=== PATIENT | male | born 1965 | race Caucasian/White ===

== ENCOUNTER 2022-10-25 07:18 | Observation (INO) ==
--- NOTE | 2022-06-06 15:32 | PAT Medication Instructions ---
Medication Instructions Date of Service June 06, 2022 Home Medications fenofibrate micronized 200 mg capsule 200 mg PO HS levocetirizine 5 mg tablet (Xyzal) 5 mg PO PM metformin 1,000 mg tablet 1,000 mg PO BID multivitamin 1 tab PO QAM omega-3 fatty acids 1,000 mg PO BID omeprazole 20 mg capsule,delayed release 20 mg PO HS pioglitazone 45 mg tablet 45 mg PO QAM simvastatin 20 mg tablet 20 mg PO HS sitagliptin 50 mg tablet (Januvia) 50 mg PO QAM tamsulosin 0.4 mg capsule 0.4 mg PO HS STOP taking 2 weeks before surgery omega-3 fatty acids 1,000 mg PO BID DO NOT take the morning of surgery metformin 1,000 mg tablet 1,000 mg PO BID multivitamin 1 tab PO QAM pioglitazone 45 mg tablet 45 mg PO QAM sitagliptin 50 mg tablet (Januvia) 50 mg PO QAM Take evening before surgery fenofibrate micronized 200 mg capsule 200 mg PO HS levocetirizine 5 mg tablet (Xyzal) 5 mg PO PM metformin 1,000 mg tablet 1,000 mg PO BID omeprazole 20 mg capsule,delayed release 20 mg PO HS simvastatin 20 mg tablet 20 mg PO HS tamsulosin 0.4 mg capsule 0.4 mg PO HS Other Notes NOTHING TO EAT OR DRINK AFTER MIDNIGHT. If you have any questions please call us at [phone] or [phone] or [phone] or [phone]
--- NOTE | 2022-06-10 08:47 | Anesthesiology Consultation ---
Date of Service June 10, 2022 Assessment & Plan (1) Encounter for pre-operative examination: - COVID screening: Per assessment on 06/10: No known COVID-19 positive contacts or current COVID-19 related symptoms. Travel screen negative. Patient vaccinated. At surgeon discretion if preop Covid testing being done. - Check BSG AM DOS - Outpatient joint pathway: Per OR booking comments, plan for outpatient joint program. Patient seen at [facility] 06/10. Strong post-op home support per pt. Case reviewed with Dr. Wood (including morbid obesity- BMI 45, uncontrolled diabetes- A1C 8.4% and preop EKG). He does not feel that patient is appropriate candidate for outpatient joint pathway and will need to be rescheduled to inpatient pathway. Lisa at surgeon's office aware/will arrange (she states their office will contact patient to make aware of post-op plan). - Abnormal Preop EKG: Preop EKG notes ST/TWA, consider inferior ischemia. No comparison EKGs available. Will have optimization form sent to PCP. Awaiting PCP response to abnormal preop EKG as well as surgeon-ordered PCP preop evaluation (Dr. Jace Ahumada, scheduled 06/22). Chart Review Chart Review: Patient seen in Pre Admission Testing Teaching & Discussion Pre-Anesthesia Teaching/Discussion Notes: Instructed NPO after midnight before surgery,except medications with 15 cc of water. Medication instructions provided according to the [facility] guidelines. History Surgery Operation Date: 07/19/22 07:15 Proposed Procedures p Right Total Knee Arthroplasty - Christo Akhtar DO Height/Weight Height: 6 ft 1 in Weight: 155.7 kg Allergies Allergy/AdvReac Type Severity Reaction Status Date / Time No Known Allergies Allergy Verified 06/06/22 07:50 Medications Home Medications Medication Instructions Recorded Confirmed Last Taken fenofibrate micronized 200 mg 200 mg PO HS 06/06/22 06/06/22 Unknown capsule levocetirizine 5 mg tablet (Xyzal) 5 mg PO PM 06/06/22 06/06/22 Unknown metformin 1,000 mg tablet 1,000 mg PO BID 06/06/22 06/06/22 Unknown multivitamin 1 tab PO QAM 06/06/22 06/06/22 Unknown omega-3 fatty acids 1,000 mg PO BID 06/06/22 06/06/22 Unknown omeprazole 20 mg capsule,delayed 20 mg PO HS 06/06/22 06/06/22 Unknown release pioglitazone 45 mg tablet 45 mg PO QAM 06/06/22 06/06/22 Unknown simvastatin 20 mg tablet 20 mg PO HS 06/06/22 06/06/22 Unknown sitagliptin 50 mg tablet (Januvia) 50 mg PO QAM 06/06/22 06/06/22 Unknown tamsulosin 0.4 mg capsule 0.4 mg PO HS 06/06/22 06/06/22 Unknown Past Medical History Medical History Arthritis BPH (benign prostatic hyperplasia) Bulging lumbar disc Diabetes mellitus, type 2 GERD (gastroesophageal reflux disease) Controlled Heart valve disorder "Mild" leaking valve on remote cardiac cath 20 years ago ([place])- per pt, was advised at that time that no further f/u was needed. No murmur noted at PAT visit 06/10/22* History of blood clots Superficial Right knee (2008), r/t trauma/work injury Hyperlipidemia Morbid obesity Varicose vein of leg RLE Exercise / Class Metabolic Activity II 4-5 Yardwork/Stairs/Walk up hill (one FS (no CP, no SOB)) Past Family History Family History Mother Family history of diabetes mellitus Other No family history of adverse response to anesthesia Past Surgical History Surgical History H/O knee surgery RT X 4 H/O shoulder surgery RT RECONSTRUCTION H/O vascular surgery RT LEG VEIN ABLATION History of cardiac cath 20 YEARS AGO AT [facility] History of colonoscopy History of esophagogastroduodenoscopy (EGD) History of tonsillectomy History of tooth extraction Nausea and vomiting after administration of anesthetic agent Past Anesthesia History No Hx of Anesthesia Complications (except PONV) and No Family Hx of Anesthesia Complications History of PONV No Hx of Motion Sickness and History of PONV (with remote surgery) Social History Smoking Status: Never smoker tobacco type: smokeless tobacco Do You Dip or Chew Tobacco: No (Quit 5 years ago) Hx Alcohol Use: Yes Alcohol type: beer alcohol intake frequency: 3 or more drinks per day (2-3 beers/night, no morning ETOH use) Hx Substance Use: No substance use type: does not use Review of Systems Patient denies chest pain, shortness of breath, dyspnea on exertion, fever, chills, cough, wheezing, palpitations. Physical Exam Vital Signs VITALS BP 128/81 P 71 TEMP 98.1 SP02 97%RA RESP 16 PHYSICAL Full cervical extension range of motion. Full TMJ range of motion. TMD 3 finger breaths Mallampati Score 1 Dentition: missing side, + several crowns/bridges Lungs: clear throughout to auscultation Cardiac: regular rate and rhythm, no murmurs noted Spine: normal Carotid arteries: negative bruit Extremities: no edema Lab Results Anesthesia Preop Results Results Anesthesia Widget: WBC 6.03 K/ul (4.8-10.8) 06/10/22 Hgb 13.6 g/dl (14.0-18.0) L 06/10/22 Hct 41.4 % (40.1-51.0) 06/10/22 Plt 253 K/uL (130-400) 06/10/22 Na 136 mmol/L (136-145) 06/10/22 K 4.9 mmol/L (3.5-5.1) 06/10/22 Cl 103 mmol/L (98-107) 06/10/22 CO2 28 mmol/L (21-32) 06/10/22 BUN 18 mg/dl (6-23) 06/10/22 Creat 1.06 mg/dl (0.6-1.4) 06/10/22 Glucose Level 236 mg/dl (70-99(Fasting)) H 06/10/22 PT 11.1 Seconds (9.0-12.0) 06/10/22 PTT 27.6 Seconds (21.0-31.0) 06/10/22 INR 1.0 (0.9-1.1) 06/10/22 HA1c 8.4 % (4.5-5.6) H 06/10/22 Urine Color Yellow 06/10/22 Urine Appearance Clear (Clear) 06/10/22 Urine pH 6.0 (4.5-7.5) 06/10/22 Urine Specific [place] 1.016 (1.000-1.030) 06/10/22 Urine Protein Negative (Negative) 06/10/22 Urine Glucose (UA) 3+ (Negative) H 06/10/22 Urine Ketones Negative (Negative) 06/10/22 Urine Blood Negative (Negative) 06/10/22 Urine Nitrite Negative (Negative) 06/10/22 Urine Bilirubin Negative (Negative) 06/10/22 Urine Urobilinogen Negative (Negative) 06/10/22 Urine Leukocyte Esterase Negative (Negative) 06/10/22 Blood Type O Negative 06/10/22 Antibody Screen NEGATIVE 06/10/22 Testing Laboratory Results *Surgeon's office made aware of elevated hgba1c* Electrocardiogram Date: 06/10/[address]/TWA, consider inferior ischemia. Chest X-Ray Date: 06/10/22 FINDINGS: There are low lung volumes. Lungs are clear. No pleural effusions. No pneumothorax. The heart is normal in size. Mild anterior wedging within a few of the thoracic spine vertebral bodies. These are technically age indeterminate but likely chronic. IMPRESSION: No acute process. COVID-19 Risk Screen Screening Information COVID-19 Screen Date: 06/10/22 Exposure 21 Days Family/Household +COVID Last 21 Days: No Exposure 10 Days Any COVID Exposure Last 10 Days: No Symptoms Last 10 Days Experienced COVID Sx Last 10 Days: No + COVID 0-90 Days COVID + in Last 0-90 Days: No
--- NOTE | 2022-06-24 16:07 | History & Physical Report ---
Date of Service June 24, 2022 date of surgery: 07/19/22 Procedure: Right Total Knee Arthroplasty Surgeon: Christo Akhtar Assessment & Plan (1) Arthritis of right knee: Plan: Patient has failed conservative measures like to receive the right total knee replacement. Plan to be on discharge with home health physical therapy, placed on Xarelto x1 month postop for DVT prophylaxis. Patient otherwise has no other questions or concerns The risks and benefits have been discussed including, but not limited to, risk of infection, nerve injury, stiffness, loss of motion, failure to improve, etc. Reasonable outcomes and options of treatment were discussed. An explanation of appropriate alternatives to the procedure that may be advantageous were discussed and their risks and benefits, as well as the risks and benefits of not proceeding with treatment. I offered to answer any additional inquiries concerning the treatment involved. All the patient's questions were answered. The patient is agreeable, understanding of the treatment plan and alternatives, and wishes to proceed with the treatment plan. History of Present Illness Chief Complaint: Right knee pain Primary Care Provider: RENETTA PCP Rmay is a 56-year-old male presents for preop evaluation prior to right total knee replacement. He has been having pain in this knee for many years now which is gradually worsened, is now affecting his daily activities including walking standing using stairs. Rates current pain as a 7 out of 10. He is tri ed and failed previous cortisone injection as well as viscosupplementation. He is tried oral anti-inflammatories and Tylenol without relief. Like to proceed with right total knee replacement Allergies Allergy/AdvReac Type Severity Reaction Status Date / Time No Known Allergies Allergy Verified 06/06/22 07:50 Home Medications Medication Instructions Recorded Confirmed Type fenofibrate micronized 200 mg 200 mg PO HS 06/06/22 06/06/22 History capsule levocetirizine 5 mg tablet (Xyzal) 5 mg PO PM 06/06/22 06/06/22 History metformin 1,000 mg tablet 1,000 mg PO BID 06/06/22 06/06/22 History multivitamin 1 tab PO QAM 06/06/22 06/06/22 History omega-3 fatty acids 1,000 mg PO BID 06/06/22 06/06/22 History omeprazole 20 mg capsule,delayed 20 mg PO HS 06/06/22 06/06/22 History release pioglitazone 45 mg tablet 45 mg PO QAM 06/06/22 06/06/22 History simvastatin 20 mg tablet 20 mg PO HS 06/06/22 06/06/22 History sitagliptin 50 mg tablet (Januvia) 50 mg PO QAM 06/06/22 06/06/22 History tamsulosin 0.4 mg capsule 0.4 mg PO HS 06/06/22 06/06/22 History Past Med/Surg History Medical History Arthritis BPH (benign prostatic hyperplasia) Bulging lumbar disc Diabetes mellitus, type 2 GERD (gastroesophageal reflux disease) Controlled Heart valve disorder "Mild" leaking valve on remote cardiac cath 20 years ago ([place])- per pt, was advised at that time that no further f/u was needed. No murmur noted at PAT visit 06/10/22* History of blood clots Superficial Right knee (2008), r/t trauma/work injury Hyperlipidemia Morbid obesity Varicose vein of leg RLE Surgical History H/O knee surgery RT X 4 H/O shoulder surgery RT RECONSTRUCTION H/O vascular surgery RT LEG VEIN ABLATION History of cardiac cath [address] [facility] History of colonoscopy History of esophagogastroduodenoscopy (EGD) History of tonsillectomy History of tooth extraction Nausea and vomiting after administration of anesthetic agent Family History Mother Family history of diabetes mellitus Other No family history of adverse response to anesthesia Social History Smoking Status: Never smoker Second Hand Exposure: No; Hx Alcohol Use: Yes Alcohol type: beer Hx Substance Use: No Preferred Language: Armenian Customer Account Technician Required: No Beliefs That Will Affect Care: None Current Living Situation: Alone Feels Safe at Home: Yes Assistive Devices: Glasses Review of Systems Review of Systems: All systems reviewed & are unremarkable except as noted in HPI & below Constitutional: no fever, no chills and no sweats Respiratory: no cough and no dyspnea Cardiovascular: no chest pain, no dyspnea and no orthopnea Gastrointestinal: no abdominal pain, no nausea and no vomiting Musculoskeletal: as per Subjective / HPI Physical Exam Physical Exam: HT: 6ft 1in WT: 155.7kg Constitutional: WD/WN, vitals as above no acute distress Respiratory: normal respiratory effort, lungs clear to auscultation no respiratory distress, no labored breathing and does not use accessory muscles Cardiovascular: RRR, no murmur, no edema Gastrointestinal (Abdomen): normal bowel sounds, soft, nontender, no he patosplenomegaly Musculoskeletal: Knee: + effusion (+1 effusion), + surgical incision (well healed portals), + limited ROM of knee (ROM 0/3/110), + knee ROM with crepitation, + joint line tenderness (medial joint line) and + Agatha's sign positive; no deformity, no skin erythema, no ecchymosis, no valgus laxity, no varus laxity, anterior drawer test negative, Blanca's sign negative and pivot shift test negative exam above in relation to patients right knee: Results & Data Results & Data ([facility]) Diagnostic Findings Right Knee X-ray: Right knee series showing advanced degenerative changes to the right knee, narrowing of the medial compartment and patello-femoral joint with patellar spurring noted, findings showing joint space narrowing of the medial compartment and patello-femoral joint, osteophyte formation and subchondral sclerosis noted. overall varus alignment. no acute bony pathology noted.
--- NOTE | 2022-09-26 09:42 | History & Physical Report ---
Date of Service September 26, 2022 date of surgery: 10/25/22 Procedure: Right Total Knee Arthroplasty Surgeon: Christo Akhtar Assessment & Plan (1) Arthritis of right knee: Plan: Patient has failed conservative measures like to receive the right total knee replacement. Plan to be on discharge with home health physical therapy, placed on Xarelto x1 month postop for DVT prophylaxis. Patient otherwise has no other questions or concerns The risks and benefits have been discussed including, but not limited to, risk of infection, nerve injury, stiffness, loss of motion, failure to improve, etc. Reasonable outcomes and options of treatment were discussed. An explanation of appropriate alternatives to the procedure that may be advantageous were discussed and their risks and benefits, as well as the risks and benefits of not proceeding with treatment. I offered to answer any additional inquiries concerning the treatment involved. All the patient's questions were answered. The patient is agreeable, understanding of the treatment plan and alternatives, and wishes to proceed with the treatment plan. History of Present Illness Chief Complaint: right knee pain Primary Care Provider: DO Ramy Aguiar is a 56-year-old male presents for preop evaluation prior to right total knee replacement. He has been having pain in this knee for many years now which is gradually worsened, is now affecting his daily activities including walking standing using stairs. Rates current pain as a 7 out of 10. He is tried and failed previous cortisone injection as well as viscosupplementation. He is tried oral anti-inflammatories and Tylenol without relief. Like to proceed with right total knee replacement Allergies Allergy/AdvReac Type Severity Reaction Status Date / Time No Known Allergies Allergy Verified 06/06/22 07:50 Home Medications Medication Instructions Recorded Confirmed Type fenofibrate micronized 200 mg 200 mg PO HS 06/06/22 06/06/22 History capsule levocetirizine 5 mg tablet (Xyzal) 5 mg PO PM 06/06/22 06/06/22 History metformin 1,000 mg tablet 1,000 mg PO BID 06/06/22 06/06/22 History multivitamin 1 tab PO QAM 06/06/22 06/06/22 History omega-3 fatty acids 1,000 mg PO BID 06/06/22 06/06/22 History omeprazole 20 mg capsule,delayed 20 mg PO HS 06/06/22 06/06/22 History release pioglitazone 45 mg tablet 45 mg PO QAM 06/06/22 06/06/22 History simvastatin 20 mg tablet 20 mg PO HS 06/06/22 06/06/22 History sitagliptin phosphate 50 mg tablet 50 mg PO QAM 06/06/22 06/06/22 History (Januvia) tamsulosin 0.4 mg capsule 0.4 mg PO HS 06/06/22 06/06/22 History Past Med/Surg History Medical History Arthritis BPH (benign prostatic hyperplasia) Bulging lumbar disc Diabetes mellitus, type 2 GERD (gastroesophageal reflux disease) Controlled Heart valve disorder "Mild" leaking valve on remote cardiac cath 20 years ago ([place])- per pt, was advised at that time that no further f/u was needed. No murmur noted at PAT visit 06/10/22* History of blood clots Superficial Right knee (2008), r/t trauma/work injury Hyperlipidemia Morbid obesity Varicose vein of leg RLE Surgical History H/O knee surgery RT X 4 H/O shoulder surgery RT RECONSTRUCTION H/O vascular surgery RT LEG VEIN ABLATION History of cardiac cath 20 YEARS AGO AT [facility] History of colonoscopy History of esophagogastroduodenoscopy (EGD) History of tonsillectomy History of tooth extraction Nausea and vomiting after administration of anesthetic agent Family History Mother Family history of diabetes mellitus Other No family history of adverse response to anesthesia Social History Smoking Status: Never smoker Second Hand Exposure: No; Hx Alcohol Use: Yes Alcohol type: beer Hx Substance Use: No Preferred Language: Estonian Guide Foreign Tour Required: No Beliefs That Will Affect Care: None Current Living Situation: Alone Feels Safe at Home: Yes Assistive Devices: Glasses Review of Systems Constitutional: no fever, no chills and no sweats Respiratory: no cough and no dyspnea Cardiovascular: no chest pain, no dyspnea and no orthopnea Gastrointestinal: no abdominal pain, no nausea and no vomiting Musculoskeletal: as per Subjective / HPI Physical Exam Physical Exam: HT: 6ft 1in WT: 155.7kg Constitutional: WD/WN, vitals as above no acute distress Respiratory: normal respiratory effort, lungs clear to auscultation no respiratory distress, no labored breathing and does not use accessory muscles Cardiovascular: RRR, no murmur, no edema Gastrointestinal (Abdomen): normal bowel sounds, soft, nontender, no hepatosplenomegaly Musculoskeletal: Knee: + knee abnormal to inspection (Right Knee:), + effusion (+1 effusion), + surgical incision (well healed portals), + limited ROM of knee (ROM 0/3/110), + knee ROM with crepitation, + joint line tenderness (medial joint line) and + Agatha's sign positive; no deformity, no skin erythema, no ecchymosis, no valgus laxity, no varus laxity, anterior drawer test negative, Blanca's sign negative and pivot shift test negative Results & Data Results & Data ([facility]) Diagnostic Findings Right Knee X-ray: Right knee series showing advanced degenerative changes to the right knee, narrowing of the medial compartment and patello-femoral joint with patellar spurring noted, findings showing joint space narrowing of the medial compartment and patello-femoral joint, osteophyte formation and subchondral sclerosis noted. overall varus alignment. no acute bony pathology noted.
--- NOTE | 2022-10-20 08:42 | Anesthesiology Consultation ---
Date of Service October 20, 2022 Assessment & Plan (1) Encounter for pre-operative examination: - COVID screening: Per assessment on 10/19: No known COVID-19 positive contacts or current COVID-19 related symptoms. Travel screen negative. Patient was Covid po sitive (home test, late 07/2022). Symptoms at time: body aches, headache > resolved. No formal Covid testing. Surgeon's office does not wish for patient to have Covid testing done prior to DOS. Per PAT RN, surgeon's office aware that if DOS Araya testing comes back positive, patient would need to be postponed as there has been no formal Covid testing supporting Covid positive result within protocol timeframe. Pt scheduled for admission post-operatively. Plan for COVID Araya AM DOS due to possibility that patient may have a roommate. Araya order placed. - Check BSG AM DOS - Cardiology office visit (09/30/22): "Had echo today.. His knee surgery was pushed back and is know [sic] scheduled for oct 25.. Abnormal EKG with possible inferior ischemia reported on 05/2022 EKG from [facility]-- pt has acceptable exercise capacity and no anginal complaints. CT agatson score is 0." Echo performed 09/30/22 was unremarkable. - Cardiology note (09/30/22): "cleared from a cardiac standpoint for his proposed knee surgery" - Outpatient joint assessment: Pt currently scheduled for inpatient pathway. If surgeon requests review for outpatient joint pathway, patient is not recommended candidate for outpatient joint program from anesthesia standpoint. - Preop testing: No recent labs. Will order CBC, BMP, coags, T&S for AM DOS. Chart Review Chart Review: Acceptable Risk for Surgery (pending preop labs AM DOS) and Patie nt NOT seen in Pre Admission Testing History Surgery Operation Date: 07/19/22 07:15 Proposed Procedures p Right Total Knee Arthroplasty - Christo Akhtar DO Operation Date: 10/25/22 07:15 Proposed Procedures p Right Total Knee Arthroplasty - Christo Akhtar DO Height/Weight Height: 6 ft 1 in Weight: 145.15 kg Allergies Allergy/AdvReac Type Severity Reaction Status Date / Time No Known Allergies Allergy Verified 10/19/22 12:29 Medications Home Medications Medication Instructions Recorded Confirmed Last Taken levocetirizine 5 mg tablet (Xyzal) 5 mg PO PM 06/06/22 06/06/22 Unknown metformin 1,000 mg tablet 1,000 mg PO BID 06/06/22 06/06/22 Unknown multivitamin 1 tab PO QAM 06/06/22 06/06/22 Unknown omega-3 fatty acids 1,000 mg PO BID 06/06/22 06/06/22 Unknown omeprazole 20 mg capsule,delayed 20 mg PO HS 06/06/22 06/06/22 Unknown release pioglitazone 45 mg tablet 45 mg PO QAM 06/06/22 06/06/22 Unknown sitagliptin phosphate 50 mg tablet 50 mg PO QAM 06/06/22 06/06/22 Unknown (Januvia) tamsulosin 0.4 mg capsule 0.4 mg PO HS 06/06/22 06/06/22 Unknown atorvastatin 40 mg tablet (Lipitor) 40 mg PO PM 10/19/22 10/19/22 Unknown Past Medical History Medical History Arthritis BPH (benign prostatic hyperplasia) Bulging lumbar disc COVID-19 Late 07/2022 (home test)- symptoms resolved Diabetes mellitus, type 2 GERD (gastroesophageal reflux disease) Controlled Heart valve disorder "Mild" leaking valve on remote cardiac cath 20 years ago ([place])- per pt, was advised at that time that no further f/u was needed. No murmur noted at PAT visit 06/10/22. No significant valvular disease noted on 09/30/22 echo* History of blood clots Superficial Right knee (2008), r/t trauma/work injury Hyperlipidemia Morbid obesity Varicose vein of leg RLE Past Family History Family History Mother Family history of diabetes mellitus Other No family history of adverse response to anesthesia Past Surgical History Surgical History H/O knee surgery RT X 4 H/O shoulder surgery RT RECONSTRUCTION H/O vascular surgery RT LEG VEIN ABLATION History of cardiac cath [address] [facility] History of colonoscopy History of esophagogastroduodenoscopy (EGD) History of tonsillectomy History of tooth extraction Nausea and vomiting after administration of anesthetic agent Social History Smoking Status: Never smoker tobacco type: smokeless tobacco Do You Dip or Chew Tobacco: No (Quit 5 years ago) Hx Alcohol Use: Yes Alcohol type: beer alcohol intake frequency: 3 or more drinks per day Alcohol Intake Frequency Comment: 2-5 BEERS DAILY Hx Substance Use: No substance use type: does not use Testing Electrocardiogram Date: 06/10/[address]/TWA, consider inferior ischemia. Patient referred to cardiology- preop evaluation/clearance/echo done 09/30/22* Chest X-Ray Date: 06/10/22 FINDINGS: There are low lung volumes. Lungs are clear. No pleural effusions. No pneumothorax. The heart is normal in size. Mild anterior wedging within a few of the thoracic spine vertebral bodies. These are technically age indeterminate but likely chronic. IMPRESSION: No acute process. Echocardiogram Date: 09/30/22 EF 50-55%. Mild LVH. Grade I DD.
[~2022-10-25 07:18] MED LIST: ACETAMINOPHEN 500 MG TAB PO SCH; BUPIVACAINE 0.5 % 5 MG/1 ML PF 10ML VIAL ONE; CeleBREX 200 MG CAP PO SCH; FAMOTIDINE 20 MG TAB PO SCH; GABAPENTIN 600 MG DOSE PO SCH; LR 500ML BOLUS, THEN 15ML/HR IV SCH; METOCLOPRAMIDE HCL 10 MG TABLET PO SCH; ROPIVACAINE 0.5% 5 MG/ML 30 ML VIAL ONE; ROPIVACAINE 0.5% HCL/PF 150 MG, BUPIVACAINE 0.75% MPF 20 ML, EPINEPHrine 30MG/30ML (OR ... INSTIL SCH; TRANEXAMIC ACID 1,000 MG **IV Intra-op IV SCH; TRANEXAMIC ACID 1,000 MG **IV Pre-op IV SCH; dexAMETHasone 4 MG TAB PO SCH
[2022-10-25 08:11] LABS: Basophils # (auto) 0.03 K/uL (0-0.2); Basophils % (auto) 0.5 %; Eosinophils # (auto) 0.12 K/uL (0-0.50); Eosinophils % (auto) 2.1 %; Hematocrit (blood only) 43.8 % (42.0-52.0); Hemoglobin 14.6 g/dl (14.0-18.0); Immature Granulocytes # (auto) 0.02 K/uL (0.01-0.20); Immature Granulocytes % (auto) 0.3 %; Lymphocytes # (auto) 1.87 K/uL (1.2-3.4); Lymphocytes % (auto) 32.5 %; Mean Corpuscular Hemoglobin 29.5 pg (25.0-34.0); Mean Corpuscular Hgb Conc 33.3 g/dL (32.0-36.0); Mean Corpuscular Volume 88.5 fL (80.0-100.0); Mean Platelet Volume 8.7 fL (9.4-12.4); Monocytes # (auto) 0.55 K/uL (0.11-0.59); Monocytes % (auto) 9.6 %; Neutrophils # (auto) 3.16 K/uL (1.40-6.50); Platelet Count 213 K/uL (130-400); RDW Coefficient of Variation 13.8 % (11.5-14.5); RDW Standard Deviation 44.9 fL (36.4-46.3); Red Blood Count 4.95 M/uL (4.70-6.10); White Blood Count 5.75 K/ul (4.8-10.8)
[2022-10-25 08:24] LABS: BUN Creatinine Ratio 18.7 (10-20); Calcium 10.2 mg/dl (8.5-10.1); Creatinine Clr Calc Pharmacy 138.1 ml/min; Est GFR (African American) 108.8 ml/min; Est GFR (Non-African American) 93.9 ml/min; Potassium 4.6 mmol/L (3.5-5.1)
[2022-10-25 08:42] LABS: INR 1.1 (0.9-1.1); Partial Thromboplastin Time 28.2 Seconds (21.0-31.0); Prothrombin Time 11.5 Seconds (9.0-12.0)
[2022-10-25] MEDS ORDERED: fentaNYL citrate 100 MCG/2 ML VIAL ONE (08:52)
[2022-10-25] MEDS ORDERED: PROPOFOL IV EMULSION 10 MG/ML 20 ML VIAL IV ONE ×4 (08:52→11:55)
[2022-10-25] MEDS ORDERED: MIDAZOLAM HCL 1 MG/ML 2ML VIAL ONE ×2 (08:52→10:31)
--- NOTE | 2022-10-25 09:10 | History & Physical Bridge Note ---
Date of Service October 25, 2022 History & Physical Bridge Note I have examined the patient, reviewed the History & Physical and in the interval since the performance of the History & Physical I have noted the following changes of clinical significance: no changes noted
[2022-10-25] MEDS ORDERED: ePHEDrine sulfate 50 MG/ML AMP IV PRN (09:26)
[2022-10-25] MEDS ORDERED: fentaNYL citrate 100 MCG/2 ML VIAL IV PRN (09:26)
[2022-10-25] MEDS ORDERED: ONDANSETRON INJ 2 MG/ML 2 ML VIAL IV PRN ×2 (09:26→13:54)
[2022-10-25] MEDS ORDERED: ATROPINE SULFATE 0.1 MG/ML 10ML SYR IV PRN (09:26)
[2022-10-25] MEDS ORDERED: ORTHO JOINT ANESTHETIC ONE (09:40)
--- NOTE | 2022-10-25 11:41 | Operative Report ---
Post Operative Report Pre & Post Diagnosis Operation Date: 07/19/22 07:15 <No data on this case meets the specified criteria> Operation Date: 10/25/22 09:35 Pre-Op Diagnosis: Osteoarthritis Right Knee Post-Op Diagnosis: Osteoarthritis Right Knee I identified the patient and participated in the time-out.: Yes Procedure Operation Date: 07/19/22 07:15 <No data on this case meets the specified criteria> Operation Date: 10/25/22 09:35 Actual Procedures p Right Total Knee Arthroplasty(Right) utilizing [employer] journey 2 patient matched total knee arthroplasty size femur 7 right tibia 7 Poly 12 patella 35 gaetano Akhtar DO Surgeon Christo Akhtar DO Parking Inspector Jackson AKERS Estimated Blood Loss 10 Findings Consistent with Post-Op Diagnosis Patient has a severe end-stage tricompartmental degenerative joint disease of the right knee no response to conservative management eburnated [id number] marginal osteophyte subchondral sclerosis subchondral cystic changes large effusion Specimens Bone and cartilage Drains Medium bore Hemovac Anesthesia Type MAC Spinal Regional Complications none Disposition Accompanied Patient To Recovery: No Disposition: Recovery Room Indications Patient presents with severe end-stage DJD after failed attempts at conservative management clinic physical therapy anti-inflammatories relative rest activity modification corticosteroid injection viscosupplementation above intraoperative findings were noted Description of Procedure After proper prepping and draping of the Right lower extremity anterior midline incision was made over the region of the extensor extensor mechanism after m eticulous hemostasis was obtained and maintained in subcutaneous tissues a medial parapatellar incision was made The patella was subluxed lateralward the medial lateral gutter were cleaned from any hypertrophic synovitis and scar tissue of the distal femoral block was placed and the distal femoral osteotomy cut was made subsequently the chamfers anterior and posterior osteotomy cuts were made utilizing the 4-in-1 block the tibia was subsequently subluxed anteriorward medial and ateral meniscal remnants were excised in their entirety remnants of the anterior and posterior cruciate ligaments were excised in their entirety excellent exposure of the proximal tibia was obtained the tibial osteotomy guide was placed on the proximal tibial osteotomy cut was made once again the knee was irrigated with copious amounts of sterile saline solution the patella was subsequently everted lateralward thickened scar tissue around the patella was removed the patella was subsequently cut utilizing a freehand technique and was drilled prepared for final preparation and placement of patella socially flexion-extension gaps were checked and the equal and symmetric trials were placed to the appropriate femoral and tibial trials with poly-spacer being placed for equal flexion and extension gaps and full range of motion including extension to 0 and flexion to 140 the trial components after having been taken to recovery range of motion was subsequently removed meticulous hemostasis was obtained and maintained subsequently a knee block injection of joint cocktail including ropivacaine 0.5% 150 mg. Bupivacaine 0.5% epinephrine 1-200,030 mL's toradol 30 mg dexamethasone 4 mg ketamine 10 mg clonidine 100 micrograms normal saline solution 30 mg was infiltrated into the soft tissues of the posterior knee medial lateral gutters and periosteal synovium special attention was paid to protect neurovascular structures at all times subsequently trial components having been removed the knee was irrigated with sterile saline solution. debris was removed the proximal tibia was subsequently prepared and was made ready for the placement of the tibial component tibial component was also cemented and tamped into position the femoral component was subsequently placed and cemented in the position the patellar component was subsequently cemented in position because hemostasis once again obtained and maintained wound having been thoroughly irrigated with debridement and debridement lavage was performed as well as a medial parapatellar incision closed with #1 Vicryl in interrupted fashion subcutaneous was closed with #2 Vicryl skin was closed with skin clips. PA-C was necessary for prepping and drapping as well as wound closure of deep fascia Sub cutaneous tissue and skin and was necessary for the case. A sterile compressive dressing was placed patient was taken to recovery in stable condition of report dictated by Hermilo I attest to the content of the Intraoperative Record and any orders documented therein. Any exceptions are noted below.Due to the complex nature of the procedure, the entire surgery was performed with the operational assistance of Jackson AKERS. The tutoring assistant, under direct supervision, was involved in the actual performance of all aspects of the surgical procedure including hemostasis, tissue retraction and incision, instrument management, patient p ositioning, and wound closure. I attest to the content of the Intraoperative Record and any orders documented therein. Any exceptions are noted below.
--- NOTE | 2022-10-25 13:12 | XRay Report ---
TWO VIEWS RIGHT KNEE CLINICAL HISTORY: Postoperative examination. FINDINGS: AP and crosstable lateral portable views of the right knee are obtained. A right knee arthr oplasty is in near anatomic alignment. There has been undersurface remodeling of the patella. No acut e fracture is seen. There are expected postoperative changes around the knee including a surgical angelica in, soft tissue edema, and subcutaneous gas. IMPRESSION: Expected postoperative changes status post right knee arthroplasty. No acute fracture is seen. ACT 112: Negative or not required by law. Electronically signed by: Atul Oliveira M.D. 10/25/2022 1:10 PM
--- NOTE | 2022-10-25 13:25 | Anesthesiology Progress Note ---
Date of Service October 25, 2022 Anesthesia Post Procedure Vital Signs Vital Signs: Temp Pulse Resp BP Pulse Ox O2 Del Method O2 Flow Rate 10/25/22 13:20 97.3 F L 65 14 139/68 93 Room Air 10/25/22 13:10 65 14 122/65 93 Room Air 10/25/22 13:00 71 20 135/67 97 Room Air 10/25/22 12:50 66 16 131/68 96 Room Air 10/25/22 12:40 69 13 128/62 100 Oxymask 3 10/25/22 12:30 73 12 107/67 99 Oxymask 6 10/25/22 12:25 97.7 F 74 12 117/63 98 Oxymask 6 10/25/22 08:08 97.9 F 75 20 155/88 H 98 Room Air Pain Intensity Right Knee: Pain Intensity: 0 Transfer of Care Handoff Completed per policy Notes Mental Status: alert / awake / arousable and participated in evaluation Patient Amnestic to Procedure: Yes Nausea / Vomiting: adequately controlled Pain: adequately controlled Airway Patency, RR, SpO2: stable & adequate BP & HR: stable & adequate Hydration State: stable & adequate Neuraxial Anesthesia: was administered and sensory block is resolving Anesthetic Complications: no major complications apparent and Pt Satisfied with anesthetic care
[2022-10-25] MEDS ORDERED: HYDROmorphone INJ 0.5 MG/0.5 ML SYR IV PRN (13:54)
[2022-10-25] MEDS ORDERED: oxyCODONE HCL IR 5 MG TAB (IMMEDIATE RELEASE) PO PRN (13:54)
[2022-10-25] MEDS ORDERED: diphenhydrAMINE 50 MG/ML VIAL IV PRN (13:54)
[2022-10-25] MEDS ORDERED: PHARMACY GLYCEMIC MGMT CONSULT PRN (13:54)
[2022-10-25] MEDS ORDERED: MAGNESIUM HYDROXIDE SUSP 30 ML UDC PO PRN (13:54)
[2022-10-25] MEDS ORDERED: bisacodyL 10 MG SUPP PR PRN (13:54)
[2022-10-25] MEDS ORDERED: NALOXONE HCL 0.4 MG/1 ML VIAL/CARP IV PRN (13:54)
--- NOTE | 2022-10-25 14:13 | Pharmacy Report ---
Pharmacy Glycemic Short Note 2 - Date of Service October 25, 2022 - Glycemic Short BSG Results (Last 24 hours): 10/25/22 10/25/22 10/25/22 07:49 08:27 13:25 Glucose 173 H POC Glucose 158 H 206 H 10/25/22 13:45 Glucose POC Glucose 209 H OUTPATIENT ANTIDIABETIC REGIMEN: * metformin 1000 mg PO BID * Actos 45 mg PO daily * Januvia 50 mg PO daily * HbA1C = 8.4% (06/10/22) ASSESSMENT: * Mr Felton is a 56 y/o M with a PMH of T2DM who presents for orthopedic surgery. * BSG prior to surgery was 158 mg/dL and after surgery was 206 mg/dL. * Patient received dexamethasone 8 mg PO preop. * Will give Lantus 50 units x 1 (full weight-based stress of 3) for steroid hyperglycemia + own basal needs. Further dosing to be determined by response tomorrow. * Novolog weight-based stress of 3. Overnight checks to ensure tight coverage. PLAN FOR INPATIENT GLYCEMIC CONTROL: * Hold outpatient oral diabetes medications * Basal insulin * Lantus 50 units SQ x 1 with subsequent doses to be determined by response * Bolus insulin * NovoLog per scale ACHS or Q6hrs while NPO * Goal Range: Low 110 mg/dL - High 140 mg/dL * Correction Factor: 15 mg/dL/unit * Nutritional / Prandial insulin per carb ratio of 1 unit per 5 grams CHO consumed
[2022-10-25] MEDS ORDERED: GLUCOSE 10 TAB/TUBE PO PRN (14:15)
[2022-10-25] MEDS ORDERED: GLUCOSE 40% GEL 15 GM TUBE PO PRN (14:15)
[2022-10-25] MEDS ORDERED: DEXTROSE 50% 50 ML SYRINGE IV PRN (14:15)
[2022-10-25] MEDS ORDERED: CARBOHYDRATES FOR HYPOGLYCEMIA PO PRN (14:15)
[2022-10-25] MEDS ORDERED: GLUCAGON FOR INJ 1 MG VIAL IM PRN (14:15)
[2022-10-25] MEDS: INSULIN ASPART PER UNIT SC SCH ×3 (14:24→21:05)
[2022-10-25] MEDS ORDERED: LANTUS PER UNIT CHARGE SQ ONE (14:30)
[2022-10-25] MEDS: SODIUM CHLORIDE 0.9% 1000ML 1,000 ML IV SCH (15:05)
[2022-10-25] MEDS: ACETAMINOPHEN 500 MG TAB PO SCH ×2 (15:05→20:43)
[2022-10-25] MEDS: KETOROLAC TROMETHAMINE 15 MG/ML VIAL IV SCH ×2 (15:05→20:42)
[2022-10-25] MEDS: ceFAZolin 2000MG 2,000 MG/15 ML SYR IV SCH (18:25)
[2022-10-25] MEDS: DOCUSATE SODIUM 100 MG CAP PO SCH (20:41)
[2022-10-25] MEDS ORDERED: CETIRIZINE HCL 10 MG TABLET PO SCH (21:00)
[2022-10-25] MEDS ORDERED: metFORMIN HCL 500 MG TAB PO SCH (21:00)
[2022-10-25] MEDS ORDERED: TAMSULOSIN HCL 0.4 MG CAP PO SCH (21:00)
[2022-10-25] MEDS ORDERED: ATORVASTATIN 40 MG TAB PO SCH (21:00)
[2022-10-25] MEDS ORDERED: SENNA 8.6 MG TAB PO SCH (21:00)
[2022-10-26] MEDS: SODIUM CHLORIDE 0.9% 1000ML 1,000 ML IV SCH (01:05)
[2022-10-26] MEDS: KETOROLAC TROMETHAMINE 15 MG/ML VIAL IV SCH ×2 (01:10→08:46)
[2022-10-26] MEDS: ceFAZolin 2000MG 2,000 MG/15 ML SYR IV SCH (01:10)
[2022-10-26] MEDS: INSULIN ASPART PER UNIT SC SCH ×4 (04:00→12:29)
[2022-10-26] MEDS: ACETAMINOPHEN 500 MG TAB PO SCH (06:09)
[2022-10-26 06:14] LABS: Hematocrit (blood only) 37.5 % (42.0-52.0); Hemoglobin 12.8 g/dl (14.0-18.0); Mean Corpuscular Hgb Conc 34.1 g/dL (32.0-36.0); Mean Platelet Volume 8.8 fL (9.4-12.4); Platelet Count 208 K/uL (130-400); RDW Coefficient of Variation 13.6 % (11.5-14.5); RDW Standard Deviation 43.7 fL (36.4-46.3); Red Blood Count 4.26 M/uL (4.70-6.10); White Blood Count 15.39 K/ul (4.8-10.8)
[2022-10-26 07:50] LABS: BUN Creatinine Ratio 18.2 (10-20); Calcium 8.8 mg/dl (8.5-10.1); Creatinine Clr Calc Pharmacy 142.8 ml/min; Est GFR (African American) 111.3 ml/min; Potassium 4.5 mmol/L (3.5-5.1)
[2022-10-26] MEDS: DOCUSATE SODIUM 100 MG CAP PO SCH (08:45)
[2022-10-26] MEDS ORDERED: PANTOprazole 40 MG TAB PO SCH (09:00)
[2022-10-26] MEDS ORDERED: MULTIVITAMIN TAB PO SCH (09:00)
[2022-10-26] MEDS ORDERED: SITagliptin PHOSPHATE 25 MG TAB PO SCH (09:00)
[2022-10-26] MEDS ORDERED: NON-FORMULARY MEDICATION (Pioglitazone 45 mg Tablet) PO SCH (09:00)
[2022-10-26] MEDS ORDERED: RIVAROXABAN 10 MG TABLET PO SCH (09:00)
[2022-10-26] MEDS ORDERED: LANTUS PER UNIT CHARGE SQ SCH (09:00)
[2022-10-26 09:06] LABS: Estimated Average Glucose 171 mg/dl; Hemoglobin A1C 7.6 % (4.5-5.6)
--- NOTE | 2022-10-26 09:48 | Orthopedic Progress Note ---
Date of Service October 26, 2022 Assessment & Plan (1) Arthritis of right knee: Plan: Postop day 1 status post right total knee arthroplasty PT/OT protocols. Patient progressing well today. DVT prophylaxis-Xarelto p.o. daily, SCDs, ALCIRA garland. Pain management as written. DC planning-patient is planning for home health services upon discharge. Plan for discharge to home today. Admission and Anticipated Discharge Date Admission Date: October 25, 2022 Subjective Postop day 1 Patient sitting at bedside awake and alert. Currently going through his physical therapy. Physical therapist states that the patient is doing quite well. Patient does not have any complaints this morning. Pain is controlled. Denies shortness of breath, chest pain, lightheadedness. He had some initial numbness and a partial foot drop throughout the night secondary to intraoperative injection however this morning he is noting better movement of the foot. Physical Exam Physical Exam: Dressings are clean, dry, and intact. Calves are soft and nontender. Some continued decrease sensation to the top of the foot secondary to his injection intraoperatively. He does have better dorsiflexion of the foot this morning and has good dorsiflexion of his great toe. Hemovac drainage was 75 mL from the previous shift. Results & Data ([facility]) Vital Signs (Past 12 Hours) Vital Signs Temp Pulse Resp BP Pulse Ox O2 Del Method 10/26/22 07:59 36.4 C L 67 16 123/77 99 Room Air 10/26/22 04:08 36.7 C 73 16 111/61 97 Room Air 10/25/22 23:21 37.1 C 69 16 105/66 95 Room Air Laboratory Results Laboratory Results WBC 15.39 K/ul (4.8-10.8) H 10/26/22 06:00 RBC 4.26 M/uL (4.70-6.10) L 10/26/22 06:00 Hgb 12.8 g/dl (14.0-18.0) L 10/26/22 06:00 Hct 37.5 % (42.0-52.0) L 10/26/22 06:00 MCV 88.0 fL (80.0-100.0) 10/26/22 06:00 MCH 30.0 pg (25.0-34.0) 10/26/22 06:00 MCHC 34.1 g/dL (32.0-36.0) 10/26/22 06:00 RDW Std Deviation 43.7 fL (36.4-46.3) 10/26/22 06:00 RDW Coeff of Dai 13.6 % (11.5-14.5) 10/26/22 06:00 Plt Count 208 K/uL (130-400) 10/26/22 06:00 MPV 8.8 fL (9.4-12.4) L 10/26/22 06:00 Immature Gran % (Auto) 0.3 % 10/25/22 07:49 Neut % (Auto) 55.0 % 10/25/22 07:49 Lymph % (Auto) 32.5 % 10/25/22 07:49 Sawyer % (Auto) 9.6 % 10/25/22 07:49 Eos % (Auto) 2.1 % 10/25/22 07:49 Baso % (Auto) 0.5 % 10/25/22 07:49 Neut # (Auto) 3.16 K/uL (1.40-6.50) 10/25/22 07:49 Lymph # (Auto) 1.87 K/uL (1.2-3.4) 10/25/22 07:49 Sawyer # (Auto) 0.55 K/uL (0.11-0.59) 10/25/22 07:49 Eos # (Auto) 0.12 K/uL (0-0.50) 10/25/22 07:49 Baso # (Auto) 0.03 K/uL (0-0.2) 10/25/22 07:49 Immature Gran # (Auto) 0.02 K/uL (0.01-0.20) 10/25/22 07:49 PT 11.5 Seconds (9.0-12.0) 10/25/22 07:49 INR 1.1 (0.9-1.1) 10/25/22 07:49 APTT 28.2 Seconds (21.0-31.0) 10/25/22 07:49 PTT Ratio 1.0 10/25/22 07:49 Sodium 136 mmol/L (136-145) 10/26/22 06:00 Potassium 4.5 mmol/L (3.5-5.1) 10/26/22 06:00 Chloride 106 mmol/L (98-107) 10/26/22 06:00 Carbon Dioxide 24 mmol/L (21-32) 10/26/22 06:00 Anion Gap 6 (3-11) 10/26/22 06:00 BUN 16 mg/dl (6-23) 10/26/22 06:00 Creatinine 0.88 mg/dl (0.6-1.4) 10/26/22 06:00 Est Cr Clr Drug Dosing 142.8 ml/min 10/26/22 06:00 Est GFR ( Amer) 111.3 ml/min 10/26/22 06:00 Est GFR (Non-Af Amer) 96.0 ml/min 10/26/22 06:00 BUN/Creatinine Ratio 18.2 (10-20) 10/26/22 06:00 Glucose 176 mg/dl (70-99(Fasting)) H 10/26/22 06:00 POC Glucose 184 mg/dl (70-99) H 10/26/22 08:02 Estimat Average Glucose 171 mg/dl 10/26/22 06:00 Hemoglobin A1c 7.6 % (4.5-5.6) H 10/26/22 06:00 Calcium 8.8 mg/dl (8.5-10.1) 10/26/22 06:00 SARS-CoV-2, RNA, NAAT NEGATIVE (NEGATIVE) 10/25/22 07:45 Blood Type O Negative 10/25/22 07:49 Antibody Screen NEGATIVE 10/25/22 07:49 Impressions Knee X-Ray 10/25/22 12:30 TWO VIEWS RIGHT KNEE CLINICAL HISTORY: Postoperative examination. FINDINGS: AP and crosstable lateral portable views of the right knee are obtained. A right knee arthroplasty is in near anatomic alignment. There has been undersurface remodeling of the patella. No acute fracture is seen. There are expected postoperative changes around the knee including a surgical drain, soft tissue edema, and subcutaneous gas. IMPRESSION: Expected postoperative changes status post right knee arthroplasty. No acute fracture is seen. ACT 112: Negative or not required by law. Electronically signed by: Atul Oliveira M.D. 10/25/2022 1:10 PM
--- NOTE | 2022-10-28 12:52 | Discharge Summary ---
Date of Service October 28, 2022 Admission HPI Per Admitting Provider Ramy is a 56-year-old male presents for preop evaluation prior to right total knee replacement. He has been having pain in this knee for many years now which is gradually worsened, is now affecting his daily activities including walking standing using stairs. Rates current pain as a 7 out of 10. He is tried and failed previous cortisone injection as well as viscosupplementation. He is tried oral anti-inflammatories and Tylenol without relief. Like to proceed with right total knee replacement Admission Exam Per Admitting Provider Physical Exam: HT: 6ft 1in WT: 155.7kg Constitutional: WD/WN, vitals as above no acute distress Respiratory: normal respiratory effort, lungs clear to auscultation no respiratory distress, no labored breathing and does not use accessory muscles Cardiovascular: RRR, no murmur, no edema Gastrointestinal (Abdomen): normal bowel sounds, soft, nontender, no hepatosplenomegaly Musculoskeletal: Knee: + knee abnormal to inspection (Right Knee:), + effusion (+1 effusion), + surgical incision (well healed portals), + limited ROM of knee (ROM 0/3/110), + knee ROM with crepitation, + joint line tenderness (medial joint line) and + Agatha's sign positive; no deformity, no skin erythema, no ecchymosis, no valgus laxity, no varus laxity, anterior drawer test negative, Blanca's sign negative and pivot shift test negative Principal Diagnosis Right knee osteoarthritis Discharge Data Allergies Allergy/AdvReac Type Severity Reaction Status Date / Time No Known Allergies Allergy Verified 10/25/22 08:21 Procedures Performed Operation Date: 07/19/22 07:15 <No data on this case meets the specified criteria> Operation Date: 10/25/22 09:35 Actual Procedures p Right Total Knee Arthroplasty(Right) - Christo Loredo DO Ordered Studies 10/25/22 05:00 US - OR guided needle placemen Routine Hospital Course (1) Arthritis of right knee: Patient:RAMY PETIT Admit Date:10/25/22 MR#:[id number] Att Phy:Christo Loredo,D.OArie Acct ID:[id number] Ene Phy:Jace Ahumada DO Date:1965 Ruiz Neri: Age:56 Location:3E Sex:M Room/Bed:E311-1 cc: ~ *NOTICE TO RECEIVING REPUBLICAN/AGENCY This information is strictly Confidential and protected under [place] law. [place] law prohibits you from making any further disclosure of this information unless further disclosure is expressly permitted by the written consent of the person to whom it pertains or is authorized by law. A general authorization for the release of medical or other information is not sufficient for this purpose. Hospital accepts no responsibility if the information is made available to any other person, INCLUDING THE PATIENT. Date of Service October 26, 2022 Assessment & Plan (1) Arthritis of right knee: Plan: Postop day 1 status post right total knee arthroplasty PT/OT protocols. Patient progressing well today. DVT prophylaxis-Xarelto p.o. daily, SCDs, ALCIRA garland. Pain management as written. DC planning-patient is planning for home health services upon discharge. Plan for discharge to home today. Admission and Anticipated Discharge Date Admission Date: October 25, 2022 Subjective Postop day 1 Patient sitting at bedside awake and alert. Currently going through his physical therapy. Physical therapist states that the patient is doing quite well. Patient does not have any complaints this morning. Pain is controlled. Denies shortness of breath, chest pain, lightheadedness. He had some initial numbness and a partial foot drop throughout the night secondary to intraoperative injection however this morning he is noting better movement of the foot. Physical Exam Physical Exam: Dressings are clean, dry, and intact. Calves are soft and nontender. Some continued decrease sensation to the top of the foot secondary to his injection intraoperatively. He does have better dorsiflexion of the foot this morning and has good dorsiflexion of his great toe. Hemovac drainage was 75 mL from the previous shift. Results & Data ([facility]) Vital Signs (Past 12 Hours) Vital Signs Temp Pulse Resp BP Pulse Ox O2 Del Method 10/26/22 07:59 36.4 C L 67 16 123/77B 99 Room Air 10/26/22 04:08 36.7 C 73 16 111/61 97 Room Air 10/25/22 23:21 37.1 C 69 16 105/66 95 Room Air Laboratory Results Laboratory Results WBC 15.39 K/ul (4.8-10.8) H 10/26/22 06:00 RBC 4.26 M/uL (4.70-6.10) L 10/26/22 06:00 Hgb 12.8 g/dl (14.0-18.0) L 10/26/22 06:00 Hct 37.5 % (42.0-52.0) L 10/26/22 06:00 MCV 88.0 fL (80.0-100.0) 10/26/22 06:00 MCH 30.0 pg (25.0-34.0) 10/26/22 06:00 D MCHC 34.1 g/dL (32.0-36.0) 10/26/22 06:00 RDW Std Deviation 43.7 fL (36.4-46.3) 10/26/22 06:00 RDW Coeff of Dai 13.6 % (11.5-14.5) 10/26/22 06:00 Plt Count 208 K/uL (130-400) 10/26/22 06:00 MPV 8.8 fL (9.4-12.4) L 10/26/22 06:00 Immature Gran % (Auto) 0.3 % 10/25/22 07:49 Neut % (Auto) 55.0 % 10/25/22 07:49 Lymph % (Auto) 32.5 % 10/25/22 07:49 Lander % (Auto) 9.6 % 10/25/22 07:49 Eos % (Auto) 2.1 % 10/25/22 07:49 Baso % (Auto) 0.5 % 10/25/22 07:49 Neut # (Auto) 3.16 K/uL (1.40-6.50) 10/25/22 07:49 Lymph # (Auto) 1.87 K/uL (1.2-3.4) 10/25/22 07:49 Lander # (Auto) 0.55 K/uL (0.11-0.59) 10/25/22 07:49 Eos # (Auto) 0.12 K/uL (0-0.50) 10/25/22 07:49 Baso # (Auto) 0.03 K/uL (0-0.2) 10/25/22 07:49 Immature Gran # (Auto) 0.02 K/uL (0.01-0.20) 10/25/22 07:49 PT 11.5 Seconds (9.0-12.0) 10/25/22 07:49 INR 1.1 (0.9-1.1) 10/25/22 07:49 APTT 28.2 Seconds (21.0-31.0) 10/25/22 07:49 PTT Ratio 1.0 10/25/22 07:49 Sodium 136 mmol/L (136-145) 10/26/22 06:00 Potassium 4.5 mmol/L (3.5-5.1) 10/26/22 06:00 Chloride 106 mmol/L (98-107) 10/26/22 06:00 Carbon Dioxide 24 mmol/L (21-32) 10/26/22 06:00 Anion Gap 6 (3-11) 10/26/22 06:00 BUN 16 mg/dl (6-23) 10/26/22 06:00 Creatinine 0.88 mg/dl (0.6-1.4) 10/26/22 06:00 Est Cr Clr Drug Dosing 142.8 ml/min 10/26/22 06:00 Est GFR ( Amer) 111.3 ml/min 10/26/22 06:00 Est GFR (Non-Af Amer) 96.0 ml/min 10/26/22 06:00 BUN/Creatinine Ratio 18.2 (10-20) 10/26/22 06:00 Glucose 176 mg/dl (70-99(Fasting)) H 10/26/22 06:00 POC Glucose 184 mg/dl (70-99) H 10/26/22 08:02 Estimat Average Glucose 171 mg/dl 10/26/22 06:00 Hemoglobin A1c 7.6 % (4.5-5.6) H 10/26/22 06:00 Calcium 8.8 mg/dl (8.5-10.1) 10/26/22 06:00 SARS-CoV-2, RNA, NAAT NEGATIVE (NEGATIVE) 10/25/22 07:45 Blood Type O Negative 10/25/22 07:49 Antibody Screen NEGATIVE 10/25/22 07:49 Impressions Knee X-Ray 10/25/22 12:30 TWO VIEWS RIGHT KNEE CLINICAL HISTORY: Postoperative examination. FINDINGS: AP and crosstable lateral portable views of the right knee are obtained. A right knee arthroplasty is in near anatomic alignment. There has been undersurface remodeling of the patella. No acute fracture is seen. There are expected postoperative changes around the knee including a surgical drain, soft tissue edema, and subcutaneous gas. IMPRESSION: Expected postoperative changes status post right knee arthroplasty. No acute fracture is seen. ACT 112: Negative or not required by law. Electronically signed by: Atul Oliveira M.D. 10/25/2022 1:10 PM Signed By: <Electronically signed by Jackson Lawson PA-C> 10/26/22 0951 <Electronically signed by Christo Loredo DO> 10/26/22 1001 Created:10/26/22 0948 Total Time Total Time Spent Total Time Spent (In Minutes): 5 Discharge Plan Discharge Items Patient Disposition: Home - Home Health Services Reason For Visit: Osteoarthritis Right Knee Discharge Diagnosis: Osteoarthritis right knee Activity: Per Instructions section Weightbearing: Right weightbearing Weightbearing Comment: As tolerated with walker Non-emergency contact: Surgeon Call non-emergency contact if: you have any medication questions, your pain is not controlled, your temperature is above 101.5, your wound has increased redness and your wound has increased drainage Follow-up/Referrals: Christo Loredo DO [Surgeon] - (Follow-up with Dr. Loredo or his PA in 2 weeks from the day of your surgery for your first postoperative visit) Jace Ahumada DO [Primary Care Provider] - Diet: Carb Consistent or DM2 Addtl Attending Provider Instructions: HOME HEALTH TO DISCONTINUE DRAIN ON 10/27/22. REMOVE DORIAN WRAP AND COTTON ROLL. MAINTAIN TIM DRESSING....... ACTIVITY RECOMMENDATIONS: SELF CARE INSTRUCTIONS AFTER TOTAL KNEE REPLACEMENT A. You may need to continue a physical therapy program after discharge from the hospital. There are several options available to you. Your doctor will assist you in selecting the best one for you. 1. An out-patient facility 2 to 3 times a week for therapy or home therapy. 2. Continue working on all exercises taught to you in the hospital. Your goals should be to increase bending of your knee to 90 degrees and beyond and to fully straighten your knee. B. You may progress at your own pace from walking with a walker or crutches to a cane; then to no assistive devices. C. Make walking a part of your daily routine. Be up as much as comfortable with rest periods throughout the day. Rest with leg elevation is very important. Use the ice wrap frequently for the first 3-4 weeks. D. There are no restrictions on activities. You may ride in a car, shop, participate in administrative tech and all social activities. E. Wear the long elastic stockings (ALCIRA hose) 20 hours a day for 2 weeks after surgery. They can be removed several times a day for laundering and for a bath. F. You may shower, no tub baths until cleared by your doctor. SPECIAL CARE INSTRUCTIONS: VERY IMPORTANT TO READ AND REVIEW A. There are a few signs you need to watch for after you are home. Call [facility] if you notice any of the followin. Increased severe knee pain. Some pain is expected especially when you exercise. 2. Increased swelling in your leg or knee; pain or swelling of the calf mu scle in either lower leg. 3. Any fluid drainage from the incision. 4. Shortness of breath or chest pain. B. Please call [facility] at if you have any concerns or questions about your operation or recovery. The doctor or his nurse will return your call promptly. C. You must take antibiotics before dental work, bladder, bowel or other surgery. Your doctor will provide you with a permanent care to carry describing this precaution. IMPORTANT: * REMEMBER TO TAKE ASPIRIN, 81 MG, TWICE DAILY FOR 4 WEEKS UNLESS OTHERWISE DIRECTED. THIS IS YOUR BLOOD THINNER. * HIGH RISK PATIENTS MAY BE PRESCRIBED A STRONGER BLOOD THINNER. THIS WILL BE PROVIDED AT DISCHARGE. * CALL IF INCREASED PAIN, REDNESS, DRAINAGE OR FEVER GREATER THAT 101. * WEAR ALCIRA HOSE 20 HOURS PER DAY FOR 2 WEEKS. * TIM Dressing - This is a large suction dressing covering your incision. This will help pull any excess drainage from the wound and allow your incision to heal properly. You may shower with this if you can keep the unit outside of the shower. If any bleeding or leakage is noted please call your doctor's office. This will remain on your incision for 7 days and then should be removed. This can be done yourself or by the home nursing staff if applicable. The entire unit is disposable once removed. Once removed, keep incision clean and dry. If redness or drainage is noted, please call your surgeon. . * After your tim dressing has been removed, follow these instructions. DERMABOND Prineo- This is a mesh tape dressing that is covered with glue. It should remain in place until the incision is properly healed, usually 10-14 days. This dressing is designed to naturally slough off. You may trim the excess mesh tape as it peels off. Incision may be briefly wet in a shower. Dry immediately by blotting with a clean, dry towel. Do not bath or swim until instructed by your doctor. Do not scratch, rub, or pick at the dressing. Do not apply any topical ointments or lotions until dressing is completely removed and/or instructed by your doctor. There may be a small piece of suture material at one end of your incision. Do not pull or trim this. If it is bothersome or catching on clothing, you may cover it with a band-aid. FOLLOW UP VISIT: If appointment is not already scheduled: Please call [facility] to make a follow-up appointment for 2 weeks after your surgery at . Pending Studies at Discharge: No Stand-Alone Forms: My [facility] RIVS, Smoking Cessation Medications and DC Order Prescriptions: New acetaminophen [Tylenol Extra Strength] 500 mg Tablet 1,000 mg PO Q8 14 Days Qty: 84 0RF polyethylene glycol 3350 [Miralax] 17 gram powder in packet 17 g PO DAILY PRN (Reason: constipation) Qty: 5 0RF celecoxib [Celebrex] 200 mg capsule 200 mg PO BID 30 Days Qty: 60 0RF aspirin 81 mg tablet,delayed release (DR/EC) 81 mg PO BID 30 Days Qty: 60 0RF cefadroxil 500 mg capsule 500 mg PO BID 14 Days Qty: 28 0RF oxycodone 5 mg tablet 5 - 10 mg PO Q6H Qty: 30 0RF Rx Instructions: ongoing therapy, supervising dr negrita lordeo. max 6 tabs in 24 hours enoxaparin [Lovenox] 40 mg/0.4 mL syringe 40 mg subcut DAILY 30 Days Qty: 12 0RF Continued multivitamin Tablet 1 tab PO QAM pioglitazone 45 mg Tablet 45 mg PO QAM tamsulosin 0.4 mg Capsule 0.4 mg PO HS metformin 1,000 mg Tablet 1,000 mg PO BID omeprazole 20 mg Capsule,Delayed Release(Dr/Ec) 20 mg PO HS Januvia 50 mg Tablet 50 mg PO QAM levocetirizine [Xyzal] 5 mg Tablet 5 mg PO PM atorvastatin [Lipitor] 40 mg Tablet 40 mg PO PM Discontinued Fish Oil Capsule 1,000 mg PO BID Krames/Other Patient Handouts: Enoxaparin Injectable Solution, Preventing Falls in the Home Admission Data Admit Date/Time: 10/25/22 12:30 Attending Provider: Christo Loredo Admit Provider: Christo Loredo Primary Care Provider: Jace Ahumada Other Interventions: Discharge Summary Assessment (RN) Last Done: 10/26/22 11:03
== END 2022-10-26 14:09 | disposition home health service (06) ==
LOC: ASU 07:18 → 3E 07:18